=== PATIENT | female | born 1950 | race Caucasian/White ===

== ENCOUNTER → 2018-05-21 | Outpatient (CLI) | payer OTHER ==
[~2018-05-21] MED LIST: DICL25ER; FURO20 PO; GLIM2 PO; HYDCHL25; IRBHYD150 PO; Norco 5-325 Ta1 EACH PO; OTEZLA30 MG PO; PARO10 PO; POTCHL20ER PO
== END ==
LOC: LAB SHORT 13:22 → LAB 13:22
DX: N39.0 Urinary tract infection, site not specified (principal)
CPT/HCPCS: 87077; 87086; 87186

== ENCOUNTER → 2019-08-11 | Outpatient (CLI) | payer OTHER | LOC: LAB SHORT 15:49 → LAB 15:49 | DX: Z51.81 Encounter for therapeutic drug level monitoring (principal); Z79.899 Other long term (current) drug therapy | CPT/HCPCS: G0480 ==

== ENCOUNTER → 2019-09-17 | Outpatient (CLI) | payer OTHER ==
[2019-09-17 16:12] LABS: Creatinine, Urine Random 78.3 mg/dL (27.00-270.00)
[2019-09-17 16:15] LABS: Microalb/Creat Ratio UR, Rand 20.945 mg/g (0.000-30.000); Microalbumin, Random Urine 16.4 mg/L (0.000-20.000)
== END | disposition home or self-care (01) ==
LOC: LAB SHORT 12:10 → LAB 12:10
PROVIDERS: Family Medicine
DX: E11.59 Type 2 diabetes mellitus with other circulatory complications (principal)
CPT/HCPCS: 82043; 82570

== ENCOUNTER → 2020-04-09 | Outpatient (CLI) | payer OTHER ==
[~2020-04-09] MED LIST changes: +GABA100 PO; +HYDR1TAB94 PO; +MELO7.5 PO
[2020-04-09 16:37] LABS: Creatinine, Urine Random 45.5 mg/dL (27.00-270.00)
[2020-04-09 16:39] LABS: Microalb/Creat Ratio UR, Rand 190.769 mg/g (0.000-30.000); Microalbumin, Random Urine 86.8 mg/L (0.000-20.000)
== END | disposition home or self-care (01) ==
LOC: LAB SHORT 14:59 → LAB 14:59
PROVIDERS: Family Medicine
DX: E11.59 Type 2 diabetes mellitus with other circulatory complications (principal)
CPT/HCPCS: 82043; 82570

== ENCOUNTER 2020-08-14 10:11 | Emergency (ER) | payer OTHER ==
[~2020-08-14] VITALS: Ht 172.7 cm; Wt 122.5 kg
[~2020-08-14 10:11] MED LIST changes: -GABA100 PO; -HYDR1TAB94 PO; -MELO7.5 PO
[2020-08-14] MEDS ORDERED: MELO7.5 PO (12:38)
[2020-08-14] MEDS ORDERED: HYDR1TAB94 PO (12:38)
[2020-08-14] MEDS ORDERED: GABA100 PO (12:38)
== END 2020-08-14 12:50 | disposition home or self-care (01) ==
LOC: ER 10:11
DX: M17.12 Unilateral primary osteoarthritis, left knee (principal)
CPT/HCPCS: 73562-LT; 73562-RT; 99283-25; A9270

== ENCOUNTER → 2023-10-23 | Outpatient (CLI) | payer OTHER ==
[~2023-10-23] MED LIST changes: +GABA100 PO; +HYDR1TAB94 PO; +MELO7.5 PO
[2023-10-23 13:19] LABS: Source, Urine Clean Catch
[2023-10-23 17:57] LABS: Appearance, Urine Hazy (Clear); Bilirubin, Urine Neg (Neg); Blood, Urine 2+ (Neg); Glucose Qualitative, Urine Neg (Neg); Ketones, Urine Neg (Neg); Leukocyte Esterase, Urine 3+ (Neg); Nitrite, Urine Pos (Neg); Protein, Urine Neg (Neg); Specific Gravity, Urine 1.015 (1.003-1.022); Urobilinogen, Urine NORM (Normal)
[2023-10-23 18:21] LABS: Color, Urine Pale Yellow (P-Yellow)
[2023-10-23 18:22] LABS: Bacteria Many /hpf; Squamous Epithelial Cells Few /hpf (Few); White Blood Cells, Urine 25-50 /hpf (0-5)
[2023-10-23 18:51] LABS: Creatinine, Urine Random 46.6 mg/dL (27.00-270.00)
[2023-10-23 18:54] LABS: Microalb/Creat Ratio UR, Rand 25.751 mg/g (0.000-30.000)
== END ==
LOC: LAB 09:36 → LAB SHORT 09:36
PROVIDERS: Nurse Practitioner Family
DX: E11.59 Type 2 diabetes mellitus with other circulatory complications (principal); I12.9 Hypertensive chronic kidney disease with stage 1 through stage 4 chronic kidney disease, or unspecified chronic kidney disease; E11.22 Type 2 diabetes mellitus with diabetic chronic kidney disease; E11.42 Type 2 diabetes mellitus with diabetic polyneuropathy
CPT/HCPCS: 81001; 82043; 82570; 87077; 87086; 87186

== ENCOUNTER → 2024-11-14 | Outpatient (CLI) | payer OTHER ==
[2024-11-14 11:06] LABS: Source, Urine Voided
[2024-11-14 12:59] LABS: Bilirubin, Urine Neg (Neg); Color, Urine Yellow (P-Yellow); Glucose Qualitative, Urine Neg (Neg); Ketones, Urine Neg (Neg); Leukocyte Esterase, Urine 3+ (Neg); Protein, Urine 2+ (Neg); Specific Gravity, Urine 1.020 (1.003-1.022); Urobilinogen, Urine NORM (Normal)
[2024-11-14 13:12] LABS: White Blood Cells, Urine 50-100 /hpf (0-5)
== END ==
LOC: LAB SHORT 09:45 → LAB 09:45
PROVIDERS: Nurse Practitioner Family
DX: N18.4 Chronic kidney disease, stage 4 (severe) (principal)
CPT/HCPCS: 81001

== ENCOUNTER → 2025-01-16 | Outpatient (CLI) | payer OTHER ==
[2025-01-16 14:51] LABS: Creatinine, Urine Random 70.0 mg/dL (27.00-270.00); Protein, Urine Random 24.9 mg/dL (0.0-11.9); Protein/Creat Ratio, Ur Random 0.4
== END | disposition home or self-care (01) ==
LOC: LAB SHORT 06:30 → LAB 06:30
PROVIDERS: Hospitalist
DX: N18.4 Chronic kidney disease, stage 4 (severe) (principal)
CPT/HCPCS: 82570; 84156